=== PATIENT | female | born 1995 | race Caucasian/White ===

== ENCOUNTER 2018-09-02 09:43 | Emergency (ER) | payer OTHER ==
[~2018-09-02] VITALS: Ht 170.2 cm; Wt 68.0 kg
[2018-09-02 09:45] VITALS: Ht 170.2 cm; Wt 68.0 kg
[2018-09-02 15:59] LABS: AMPHETAMINE QUAL UR POSITIVE (See below)
[2018-09-02 19:05] VITALS: BP 127/75
== END 2018-09-02 20:00 | disposition home or self-care (01) ==
LOC: ED 09:43
PROVIDERS: Emergency Medicine
DX: F19.10 Other psychoactive substance abuse, uncomplicated (principal); D64.9 Anemia, unspecified; Z88.0 Allergy status to penicillin
CPT/HCPCS: J1630; J2060; J7030

== ENCOUNTER 2019-02-14 03:08 | Emergency (ER) | payer OTHER | END 2019-02-14 04:30 | disposition left against medical advice (07) | LOC: ED 03:08 | DX: Z53.21 Procedure and treatment not carried out due to patient leaving prior to being seen by health care provider (principal) ==

== ENCOUNTER 2019-10-04 12:12 | Emergency (ER) | payer MEDICAID | END 2019-10-04 12:38 | disposition left against medical advice (07) | LOC: ED 12:12 | DX: Z53.21 Procedure and treatment not carried out due to patient leaving prior to being seen by health care provider (principal) ==